=== PATIENT | male | born 2005 | race Caucasian/White ===

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

== ENCOUNTER 2024-06-29 13:49 | Emergency (ER) | payer OTHER ==
[2024-06-29 14:13] VITALS: BP 117/65; O2SAT 100
--- NOTE | 2024-06-29 14:34 | ED Physician Documentation ---
History of Present Illness - Stated complaint Stated Complaint: RT LEG CALF LUMP - Chief complaint Chief Complaint: Trauma Ext - History obtained from History obtained from: Patient - Additonal information Additional information: Patient is a 18-year-old male presenting to the emergency department with right leg lump that has been going on for about 4 years. Patient notes it went away about 2 years ago and then came back slightly larger. He denies any pain with it has not grown in size he denies any redness to it no bruising no recent trauma to his right leg. He denies any difficulty bending or flexing his leg. His full range of motion of right knee and ankle. Patient has not seen anyone for this problem before. PD PAST MEDICAL HISTORY - Past Medical History Past Medical History: No - Past Surgical History Past Surgical History: No - Present Medications Home Medications: Ambulatory Orders Medication Instructions Recorded Confirmed No Known Home Medications 06/29/24 06/29/24 - Allergies Allergies/Adverse Reactions: Allergies Allergy/AdvReac Type Severity Reaction Status Date / Time No Known Drug Allergies Allergy Verified 06/29/24 14:02 - Social History Does the pt smoke?: No Smoking Status: Never smoker PD ED PE NORMAL - Vitals Vital signs reviewed: Yes - General General: Alert and oriented X 3 - HEENT HEENT: Atraumatic - Neck Neck: Supple, no meningeal sign - Cardiac Cardiac: RRR, No murmur, No gallop, No rub - Respiratory Respiratory: No respiratory distress, Clear bilaterally - Derm Derm: Normal color, No rash, Other (No erythema to right leg on examination) - Extremities Extremities: No deformity, No tenderness to palpate, Normal ROM s pain, No edema, No calf tenderness / cord, Other (No palpable cord or edema. Palpable mass approximately 1 cm in diameter, mobile and soft on examination. Good sensation and ROM to extremities. No warmth or tenderness to mass on palpation.) - Neuro Neuro: Alert and oriented X 3 - Psych Psych: Normal mood Results - Vitals Vitals: Oxygen O2 Source Room air PD Medical Decision Making - ED course Complexity details: re-evaluated patient ED course: Patient is a 18-year-old male presents to the emergency department with symptoms as listed above. Patient's symptoms have been going on for multiple years he has not seen anyone else for this before. Patient presents for right leg mass. Mass is located to right lower leg. Palpable mass about 1 cm in diameter with no significant tenderness, redness, or surrounding induration or discharge. Given no significant findings reassuring physical exam findings and symptoms going on for multiple years no acute treatment required at this time. Mukund instructed if he want removal of this you will most likely need to make an appointment with the surgeon for removal of the cyst watch for redness swelling warmth fevers discharge Departure - Departure Disposition: 01 Home, Self Care Clinical Impression: Lipoma of right lower extremity Condition: Good Comments: Your workup here was reassuring symptoms most likely will resolve on their own if you want removal of this you will most likely need to make an appointment with the surgeon for removal of the cyst watch for redness swelling warmth fevers discharge Forms: PCP List Discharge Date/Time: 06/29/24 14:30
== END 2024-06-29 14:30 | disposition home or self-care (01) ==
LOC: ED 13:49
DX: D17.23 Benign lipomatous neoplasm of skin and subcutaneous tissue of right leg (principal)
CPT/HCPCS: 99281; 99283